=== PATIENT | female | born 1955 | race Caucasian/White ===

== ENCOUNTER → 2017-01-18 | Outpatient (REF) | payer OTHER ==
[~2017-01-18] MED LIST: ESCI10TA2 PO; ESTR625TA TOP; OMEP40CA2 PO; RANI1TAB38 PO; SIMV10TA2 PO; SING10TA32 PO; [UNRECOGNIZED DRUG - CODE] PO
[2017-01-18 14:18] LABS: CONTROL LINE HPYORI INT CTR LINE PRESENT
== END ==
LOC: M LAB REF 09:57
PROVIDERS: ATTEND Internal Medicine
DX: R10.9 Unspecified abdominal pain (principal)

== ENCOUNTER → 2017-10-03 | Outpatient (CLI) | payer OTHER ==
[2017-10-03 18:21] LABS: ALBUMIN 3.5 GM/DL (3.2-5.2); ALBUMIN/GLOBULIN RATIO 0.88 (1.00-1.93); ALKALINE PHOSPHATASE 68 U/L (45-117); ALT/SGPT 22 U/L (12-78); AST/SGOT 19 U/L (7-37); BILIRUBIN,DIRECT < 0.1 MG/DL (0.0-0.2); BILIRUBIN,TOTAL 0.3 MG/DL (0.2-1.0); CHOLESTEROL LEVEL 211 MG/DL (<200); CHOLESTEROL RISK RATIO 3.102 (<5); HDL CHOLESTEROL 68 MG/DL (>40); LDL CHOLESTEROL 95.8 MG/DL (<100); NON-HDL-C 143 MG/DL; TOTAL PROTEIN 7.5 GM/DL (6.4-8.2); TRIGLYCERIDES LEVEL 236 MG/DL (<150)
== END ==
LOC: M LAB 16:35
DX: E78.2 Mixed hyperlipidemia (principal)
CPT/HCPCS: 80076

== ENCOUNTER → 2017-11-25 | Outpatient (CLI) | payer OTHER | LOC: M WHC 08:30 | DX: Z12.31 Encounter for screening mammogram for malignant neoplasm of breast (principal); Z78.0 Asymptomatic menopausal state; Z80.3 Family history of malignant neoplasm of breast; Z95.0 Presence of cardiac pacemaker | CPT/HCPCS: 77067 ==

== ENCOUNTER 2018-03-22 09:32 | Emergency (ER) | payer OTHER ==
[2018-03-22] MEDS: TETRACAINE 0.5% OPHTH SOLN 4ML OS (10:30)
[2018-03-22] MEDS: FLUORESCEIN OPHTH 1 MG STRIP OS (10:30)
== END 2018-03-22 11:55 | disposition home or self-care (01) ==
LOC: M ED 09:32
DX: S05.92XA Unspecified injury of left eye and orbit, initial encounter (principal); W54.1XXA Struck by dog, initial encounter; Y92.89 Other specified places as the place of occurrence of the external cause; I10 Essential (primary) hypertension; J45.909 Unspecified asthma, uncomplicated; K21.9 Gastro-esophageal reflux disease without esophagitis; Z95.0 Presence of cardiac pacemaker; Z91.018 Allergy to other foods; Z91.040 Latex allergy status; E73.9 Lactose intolerance, unspecified; Z79.890 Hormone replacement therapy; Z79.899 Other long term (current) drug therapy
CPT/HCPCS: 99283

== ENCOUNTER → 2018-04-17 | Outpatient (REF) | payer OTHER ==
[2018-04-18 14:58] LABS: FERRITIN 54 NG/ML (8-252); IRON (FE) 72 UG/DL (50-170); PERCENT SATURATION 22.2 % (13.2-45.0); TOTAL IRON BINDING CAPACITY 325 UG/DL (250-450)
[2018-04-18 15:01] LABS: VITAMIN B12 LEVEL 490 PG/ML (247-911)
== END ==
LOC: M LAB REF 13:24
DX: D64.9 Anemia, unspecified (principal)
CPT/HCPCS: 83550

== ENCOUNTER → 2018-08-01 | Outpatient (REF) | payer OTHER ==
[~2018-08-01] MED LIST changes: +DICY10CA13; +LOSA50TA5 PO; +XALA0.007 OU
[2018-08-01 13:50] LABS: RHEUMATOID FACTOR QUANT < 10.0 IU/ML (<15.0)
[2018-08-01 14:02] LABS: TOTAL 25(OH) VITAMIN D 24.7 NG/ML (30.0-100.0); VITAMIN B12 LEVEL 577 PG/ML
[2018-08-02 16:40] LABS: ANTINUCLEAR ANTIBODIES DIRECT Negative (Negative)
[2018-08-04 10:48] LABS: VITAMIN E(ALPHA TOCOPHEROL) 15.6 mg/L (9.0-29.0); VITAMIN E(GAMMA TOCOPHEROL) 0.7 mg/L (0.5-4.9)
[2018-08-06 00:06] LABS: VITAMIN B1 LEVEL WHOLE BLOOD 117.7 nmol/L (66.5-200.0); VITAMIN B6,PYRIDOXAL PHOSPHATE 28.7 ug/L (2.0-32.8)
== END ==
LOC: M LAB REF 13:27
PROVIDERS: ATTEND Internal Medicine
DX: R55 Syncope and collapse (principal)

== ENCOUNTER → 2018-08-08 | Outpatient (CLI) | payer OTHER ==
[~2018-08-08] MED LIST changes: +ISOVUE-370 76% 100ML VIAL (Q9967) As Ordered ONE
--- NOTE | 2018-08-08 17:38 | REP ---
Clinical: Poor coordination. Technique: Axial pre and contrast enhanced images from the skull base to the vertex using 100 ml Isovue 370 intravenous contrast material. Findings: The ventricles, sulci, and cisterns are normal in position and appearance. Seaman-white differentiation is maintained. No acute intracranial hemorrhage, mass/mass effect, pathology or trauma/injury. No enhancing abnormalities are identified. Vascularity appears relatively symmetric to the bilateral hemispheres. No obvious aneurysm or arteriovenous malformation identified. No evidence for acute infarction. No extra-axial fluid collection. Calvarium is intact. Paranasal sinuses and mastoid air cells are clear. Impression: Normal pre and postcontrast head CT. No evidence for acute intracranial pathology or trauma/injury. Electronically Signed by Gamal Whalen MD 08/08/2018 05:29 P
== END ==
LOC: M RAD 16:36
PROVIDERS: ATTEND Psychiatry & Neurology Neurology
DX: R27.8 Other lack of coordination (principal)
CPT/HCPCS: 70470; Q9967

== ENCOUNTER → 2018-10-01 | Outpatient (REF) | payer OTHER ==
[~2018-10-01] MED LIST changes: -ISOVUE-370 76% 100ML VIAL (Q9967) As Ordered ONE
[2018-10-01 13:08] LABS: PERCENT SATURATION 30.7 % (13.2-45.0)
== END ==
LOC: M LAB REF 12:23
PROVIDERS: ATTEND Internal Medicine
DX: D64.9 Anemia, unspecified (principal)

== ENCOUNTER → 2019-04-07 | Outpatient (REF) | payer OTHER ==
[~2019-04-07] MED LIST changes: -OMEP40CA2 PO; +OMEP40CA97 PO; -SIMV10TA2 PO; +SIMV10TA21 PO
[2019-04-07 14:24] LABS: PERCENT SATURATION 14.6 % (13.2-45.0)
[2019-04-10 00:07] LABS: ANTINUCLEAR ANTIBODIES DIRECT Negative (Negative); CYCLIC CITRULLINATED PEPTIDE 8 units (0-19); Lyme Disease IgG/IgM Antibodie <0.91 ISR (0.00-0.90); Lyme Disease IgM Ab Quantitati <0.80 index (0.00-0.79)
== END ==
LOC: M LAB REF 13:37
PROVIDERS: ATTEND Internal Medicine
DX: D50.9 Iron deficiency anemia, unspecified (principal)

== ENCOUNTER → 2019-10-13 | Outpatient (REF) | payer OTHER | LOC: M SFHCWAGY 10:23 | PROVIDERS: ATTEND Nurse Practitioner Family | DX: Z12.4 Encounter for screening for malignant neoplasm of cervix (principal); Z01.419 Encounter for gynecological examination (general) (routine) without abnormal findings ==

== ENCOUNTER → 2019-10-13 | Outpatient (CLI) | payer OTHER ==
--- NOTE | 2019-10-14 01:40 | REPPI ---
Clinical: Pain Technique: AP, lateral, bilateral oblique views left hand . Findings: Generalized age-related changes are appreciated including minimal subchondral sclerosis, and joint space narrowing through the metacarpophalangeal and interphalangeal joints. Mild subchondral sclerosis and joint space narrowing is also noted at the radiocarpal joint line. No acute fracture or dislocation. No subcutaneous emphysema. No foreign body. Impression: Mild generalized osteoarthritic changes. Electronically Signed by Gamal Whalen MD 10/14/2019 01:31 A
--- NOTE | 2019-10-14 02:30 | REPPI ---
Clinical: Left hand pain. Technique: AP, lateral, bilateral oblique views of the left wrist. Findings: Generalized age-related changes include increased sclerosis along the radial surface with minimally decreased radiocarpal joint space as well as carpometacarpal joint space narrowing. No acute fracture dislocation. No obvious chondrocalcinosis or periarticular calcifications. Impression: Age-related arthritic changes. Electronically Signed by Gamal Whalen MD 10/14/2019 02:22 A
== END ==
LOC: M PLAIMG 16:01
PROVIDERS: ATTEND Psychiatry & Neurology Neurology
DX: M25.542 Pain in joints of left hand (principal); M19.041 Primary osteoarthritis, right hand; M19.031 Primary osteoarthritis, right wrist; M25.532 Pain in left wrist

== ENCOUNTER → 2019-10-13 | Outpatient (CLI) | payer OTHER ==
--- NOTE | 2019-10-13 16:58 | REPMRS ---
Patient History The patient states she had a clinical breast exam in October 2019. Family history of breast cancer at age 28 in daughter. Benign excisional biopsy of the right breast. Took hormonal contraceptives for 15 years. Taking estrogen for 10 years. Taking progesterone for 10 years. 3D TOMOSYNTHESIS WAS PERFORMED. [facility] for [facility] cancer is 10.1%. VOLPARA DENSITY B. Digital Woman Screen Mammo: October 13, 2019 - Exam #: [id number] Bilateral CC and MLO view(s) were taken. Technologist: Lola Willis, Technologist Prior study comparison: November 25, 2017, bilateral digital woman screen mammo performed at [facility]. May 19, 2015, digital woman screen mammo performed at [facility]. FINDINGS: The breast tissue is heterogeneously dense. This may lower the sensitivity of mammography. There has been no change in the appearance of the mammogram from the prior studies. There is a moderate amount of residual fibroglandular tissue which is fairly symmetric. There is no interval development of dominant mass, areas of architectural distortion, or clustered microcalcification typical of malignancy. Assessment: BI-RADS/ACR category 1 mammogram. Negative Mammogram. Recommendation Routine screening mammogram in 1 year (for women over age 40). This mammogram was interpreted with the aid of an FDA-approved computer-aided dectection system. Electronically Signed By: Mirza Seaman MD 10/13/19 [id number]
== END ==
LOC: M WHC 14:35
PROVIDERS: ATTEND Nurse Practitioner Family
DX: Z12.31 Encounter for screening mammogram for malignant neoplasm of breast (principal); Z80.3 Family history of malignant neoplasm of breast

== ENCOUNTER → 2019-10-19 | Outpatient (CLI) | payer OTHER ==
--- NOTE | 2019-10-20 08:47 | REP ---
Clinical: Pelvic pain. Technique: Transabdominal pelvic ultrasound followed by transvaginal examination for better evaluation of the endometrium and adnexa. Findings: Heterogeneous anteverted uterus measures 5.6 x 2.6 x 3.4 cm few scattered small myometrial calcifications suggest benign chronic changes. The endometrial complex measures 4 mm thickness and a small endometrial calcification is also noted and appears insignificant/chronic. No discrete significant uterine or endometrial abnormalities appreciated. Ovaries are not visualized. No pelvic fluid or adnexal mass lesion. Impression: 1. Few scattered myometrial and endometrial calcifications suggest benign chronic changes. 2. Ovaries not visualized.
== END ==
LOC: M WHC 15:29
PROVIDERS: ATTEND Nurse Practitioner Family
DX: R10.2 Pelvic and perineal pain (principal)

== ENCOUNTER → 2020-12-12 | Outpatient (CLI) | payer MEDICARE, OTHER ==
[~2020-12-12] MED LIST changes: +ESCI10TA16 PO; -ESCI10TA2 PO; +OMEP40CA4 PO; -OMEP40CA97 PO
[2020-12-12 16:07] LABS: BASO # 0.1 10^3/uL (0.0-0.2); BASO % 0.5 % (0.0-1.0); EOS # 0.1 10^3/uL (0.0-0.5); EOS % 0.6 % (0.0-3.0); HEMATOCRIT 37.7 % (36.0-47.0); HEMOGLOBIN 12.3 g/dl (12.0-15.5); LYMPH # 3.6 10^3/uL (1.5-5.0); LYMPH % 39.2 % (24.0-44.0); MEAN CORPUSCULAR HEMOGLOBIN 31.4 pg (27.0-33.0); MEAN CORPUSCULAR HGB CONC 32.6 g/dl (32.0-36.5); MEAN CORPUSCULAR VOLUME 96.2 fl (80.0-96.0); MONO # 0.8 10^3/uL (0.0-0.8); MONO % 9.1 % (2.0-8.0); NEUTROPHILS # 4.7 10^3/uL (1.5-8.5); NEUTROPHILS % 50.3 % (36.0-66.0); PLATELET COUNT, AUTOMATED 294 10^3/uL (150-450); RED BLOOD COUNT 3.92 10^6/uL (4.00-5.40); WHITE BLOOD COUNT 9.3 10^3/uL (4.0-10.0)
[2020-12-12 16:22] LABS: HEMOGLOBIN A1c 5.8 %
[2020-12-12 16:31] LABS: ERYTHROCYTE SEDIMENTATION RATE 52 mm/hr (0-30)
[2020-12-12 16:41] LABS: ALBUMIN 3.9 GM/DL (3.2-5.2); ALT/SGPT 32 U/L (12-78); BILIRUBIN,TOTAL 0.6 MG/DL (0.2-1.0); BLOOD UREA NITROGEN 22 MG/DL (7-18); CALCIUM LEVEL 9.4 MG/DL (8.8-10.2); CARBON DIOXIDE LEVEL 31 MEQ/L (21-32); CHLORIDE LEVEL 104 MEQ/L (98-107); CREATININE FOR GFR 1.08 MG/DL (0.55-1.30); GLOMERULAR FILTRATION RATE 53.9 (>45); GLUCOSE, FASTING 95 MG/DL (70-100); POTASSIUM SERUM 3.8 MEQ/L (3.5-5.1); RHEUMATOID FACTOR QUANT < 10.0 IU/ML (<15.0); SODIUM LEVEL 139 MEQ/L (136-145); VITAMIN B12 LEVEL 474 PG/ML
[2020-12-12 16:42] LABS: FOLATE 10.9 NG/ML
[2020-12-13 12:08] LABS: ALBUMIN 4.45 GM/DL (3.29-5.55); ALBUMIN % 55.6 % (55.8-66.1); ALPHA-1-GLOBULIN % 4.3 % (2.9-4.9); ALPHA-1-GLOBULINS 0.34 GM/DL (0.17-0.41); ALPHA-2-GLOBULINS 0.75 GM/DL (0.42-0.99); ALPHA-2-GLOBULINS % 9.4 % (7.1-11.8); BETA-1-GLOBULINS 0.51 GM/DL (0.28-0.60); BETA-1-GLOBULINS % 6.4 % (4.7-7.2); BETA-2-GLOBULINS % 7.8 % (3.2-6.5); GAMMA GLOBULIN % 16.5 % (11.1-18.8); GAMMA GLOBULINS 1.32 GM/DL (0.65-1.58)
[2020-12-13 12:09] LABS: BETA-2-GLOBULINS 0.62 GM/DL (0.19-0.55)
== END ==
LOC: M LAB 14:46
PROVIDERS: ATTEND Psychiatry & Neurology Neurology
DX: R41.3 Other amnesia (principal); Z79.899 Other long term (current) drug therapy

== ENCOUNTER → 2020-12-14 | Outpatient (CLI) | payer MEDICARE, OTHER ==
[~2020-12-14] MED LIST changes: +ISOVUE-370 76% 100ML VIAL As Ordered ONE
--- NOTE | 2020-12-14 14:57 | REPVR ---
PROCEDURE INFORMATION: Exam: CT Head Without And With Contrast Exam date and time: 12/14/2020 2:30 PM Age: 65 years old Clinical indication: Other: Memory loss TECHNIQUE: Imaging protocol: Computed tomography of the head without and with intravenous contrast. Radiation optimization: All CT scans at this facility use at least one of these dose optimization techniques: automated exposure control; mA and/or kV adjustment per patient size (includes targeted exams where dose is matched to clinical indication); or iterative reconstruction. Contrast material: ISOVUE 370; Contrast volume: 75 ml; Contrast route: INTRAVENOUS (IV); COMPARISON: CT Head W/O FOLL BY WITH CONTR 08/08/2018 5:05 PM FINDINGS: Brain: There is no acute intracranial hemorrhage, cerebral edema, or midline shift. Chronic microvascular ischemic changes are seen in the periventricular white matter. No enhancing lesions were identified after the administration of contrast. Mild cerebral and cerebellar volume loss is present. Cerebral ventricles: Mild ex vacuo dilation of the lateral ventricles is noted. Paranasal sinuses: Mucoperiosteal thickening is noted in the partially visualized left maxillary sinus. Mastoid air cells: The mastoid air cells are clear. Orbital cavity: The included orbital structures are unremarkable. Vasculature: Atherosclerotic calcifications are seen involving the cavernous carotid arteries. Bones/joints: Unremarkable. No acute fracture. Soft tissues: Unremarkable. IMPRESSION: 1. No acute intracranial abnormality. 2. Chronic findings as discussed above. Electronically signed by: Derik Lares On 12/14/2020 14:57:25 PM
== END ==
LOC: M RAD 14:09
PROVIDERS: ATTEND Psychiatry & Neurology Neurology
DX: R41.3 Other amnesia (principal)
CPT/HCPCS: 70470; Q9967

== ENCOUNTER → 2021-03-20 | Outpatient (CLI) | payer MEDICARE, OTHER ==
[~2021-03-20] MED LIST changes: -ISOVUE-370 76% 100ML VIAL As Ordered ONE
--- NOTE | 2021-03-20 17:55 | REPMRS ---
Patient History The patient states she has not had a clinical breast exam in over a year. Patient is postmenopausal. Family history of breast cancer at age 28 in daughter. Benign excisional biopsy of the right breast. Took hormonal contraceptives for 15 years. Took estrogen for 10 years. Took progesterone for 10 years. Moderna vaccine 06/07/20, 07/20/20 Patient states no breast complaints today. Patient has signed MRS History Sheet. Digital Woman Screen Mammo: March 20, 2021 - Exam #: [id number] Bilateral CC and MLO view(s) were taken. Technologist: RT Qasim Prior study comparison: October 13, 2019, bilateral digital woman screen mammo performed at [facility]. November 25, 2017, bilateral digital woman screen mammo performed at [facility]. FINDINGS: There are scattered fibroglandular densities. Screening. Digital screening (2D) mammography was performed bilaterally in the CC and MLO projections. Additionally, breast tomosynthesis (3D mammography) was performed bilaterally in the CC and MLO projections. Todays exam was compared to the prior exam/exams. By history, the patient has no complaints of a palpable breast abnormality or other significant breast complaints. The Volpara volumetric breast density category is B, there are scattered areas of fibroglandular densities. There is a pacemaker device in the left axilla. The breasts are unchanged in size and shape. There are no harini-soft tissue densities or spiculated masses. There is no internal architectural distortion. There are no suspicious harini-calcific clusters. Skin thickening or nipple retraction is not present. IMPRESSION: BI-RADS Category 2- Benign Findings. There is no evidence of malignant alteration of the breasts. Followup examination recommended in one year. This mammogram was read with the assistance of Weave,an FDA approved computer aided detection system for mammography. The lifetime Tyrer-Cuzick score is 9.5% Negative x-ray reports should not delay surgical consultation if a dominant or clinically suspicious mass is present. Not all breast cancers can be identified by mammography. Therefore, we recommend that you continue to perform regular breast self-examination and physical examination and then promptly contact your physician of any concerns or changes. Adenosis and dense breasts may obscure an underlying neoplasm. No significant changes when compared with prior studies. Assessment: BI-RADS/ACR category 2 mammogram. Benign Findings. Recommendation Routine screening mammogram of both breasts in 1 year. Electronically Signed By: Lior Lantigua MD 03/20/21 [id number]
== END ==
LOC: M WHC 14:35
PROVIDERS: ATTEND Internal Medicine
DX: Z12.31 Encounter for screening mammogram for malignant neoplasm of breast (principal)

== ENCOUNTER → 2021-04-08 | Outpatient (CLI) | payer MEDICARE, OTHER ==
[~2021-04-08] MED LIST changes: +LEXA1TAB2 PO
== END ==
LOC: M LABSMTC 10:56
PROVIDERS: ATTEND Anesthesiology
DX: Z01.812 Encounter for preprocedural laboratory examination (principal); Z20.822 Contact with and (suspected) exposure to COVID-19

== ENCOUNTER 2021-04-13 09:53 | Day surgery (SDC) | payer MEDICARE, OTHER ==
[~2021-04-13] VITALS: Ht 160 cm; Wt 77.6 kg
[~2021-04-13 09:53] MED LIST changes: +NS 1,000 ML IV ONE
[2021-04-13] MEDS ORDERED: LIDOCAINE 2% 100MG/5ML SDV (FOR ANES.) As Ordered ONE (10:51)
[2021-04-13] MEDS ORDERED: propofoL 200 MG/20 ML VIAL As Ordered ONE (10:51)
[2021-04-13] MEDS ORDERED: GLYCOPYRROLATE INJ 0.2 MG/ML 2 ML VIAL As Ordered ONE (10:52)
[2021-04-13 11:47] VITALS: BP 116/58
== END 2021-04-13 11:50 | disposition home or self-care (01) ==
LOC: M OPP 09:53
PROVIDERS: ATTEND Internal Medicine Gastroenterology
DX: K55.20 Angiodysplasia of colon without hemorrhage (principal); Z86.010 Personal history of colon polyps; R12 Heartburn; I10 Essential (primary) hypertension; E78.5 Hyperlipidemia, unspecified; K58.8 Other irritable bowel syndrome; Z95.0 Presence of cardiac pacemaker; F32.A Depression, unspecified; F41.9 Anxiety disorder, unspecified; Z88.8 Allergy status to other drugs, medicaments and biological substances; Z91.040 Latex allergy status; Z79.899 Other long term (current) drug therapy

== ENCOUNTER → 2021-06-16 | Outpatient (REF) | payer MEDICARE, OTHER ==
[~2021-06-16] MED LIST changes: -NS 1,000 ML IV ONE
== END ==
LOC: M LAB REF 16:22
PROVIDERS: ATTEND Internal Medicine
DX: N76.0 Acute vaginitis (principal); N39.0 Urinary tract infection, site not specified

== ENCOUNTER → 2021-06-16 | Outpatient (REF) | payer MEDICARE, OTHER | LOC: M LAB REF 16:25 | PROVIDERS: ATTEND Internal Medicine | DX: N39.0 Urinary tract infection, site not specified (principal) ==

== ENCOUNTER → 2021-08-24 | Outpatient (REF) | payer MEDICARE, OTHER | LOC: M LAB REF 16:22 | PROVIDERS: ATTEND Internal Medicine | DX: H44.112 Panuveitis, left eye (principal) ==

== ENCOUNTER → 2021-11-24 | Outpatient (CLI) | payer MEDICARE ==
[~2021-11-24] MED LIST changes: +PROG100C23 PO; -[UNRECOGNIZED DRUG - CODE] PO
== END ==
LOC: M PLAIMG 09:56
PROVIDERS: ATTEND Internal Medicine
DX: M25.551 Pain in right hip (principal)

== ENCOUNTER → 2022-02-22 | Outpatient (CLI) | payer MEDICARE | LOC: M PLAIMG 09:57 | PROVIDERS: ATTEND Physician Assistant | DX: M25.551 Pain in right hip (principal) ==

== ENCOUNTER → 2022-03-19 | Outpatient (CLI) | payer MEDICARE ==
[2022-03-19 15:50] LABS: HEMATOCRIT 38.8 % (36.0-47.0); HEMOGLOBIN 12.5 g/dl (12.0-15.5); MEAN CORPUSCULAR HEMOGLOBIN 31.3 pg (27.0-33.0); MEAN CORPUSCULAR HGB CONC 32.2 g/dl (32.0-36.5); MEAN CORPUSCULAR VOLUME 97.2 fl (80.0-96.0); PLATELET COUNT, AUTOMATED 285 10^3/uL (150-450); RED BLOOD COUNT 3.99 10^6/uL (4.00-5.40); WHITE BLOOD COUNT 10.1 10^3/uL (4.0-10.0)
[2022-03-19 16:15] LABS: CALCIUM LEVEL 9.5 MG/DL (8.8-10.2); CREATININE FOR GFR 1.08 MG/DL (0.55-1.30); GLOMERULAR FILTRATION RATE 53.7 (>45); POTASSIUM SERUM 3.6 MEQ/L (3.5-5.1)
== END ==
LOC: M PLALAB 13:34
PROVIDERS: ATTEND Physician Assistant
DX: I49.5 Sick sinus syndrome (principal)

== ENCOUNTER → 2022-04-04 | Outpatient (CLI) | payer MEDICARE ==
[~2022-04-04] MED LIST changes: +HYOS125TA
== END ==
LOC: M LABSMTC 09:04
PROVIDERS: ATTEND Anesthesiology
DX: Z01.812 Encounter for preprocedural laboratory examination (principal); Z11.52 Encounter for screening for COVID-19

== ENCOUNTER 2022-04-09 11:32 | Day surgery (SDC) | payer MEDICARE ==
[~2022-04-09] VITALS: Ht 160 cm; Wt 79.4 kg
[~2022-04-09 11:32] MED LIST changes: +ceFAZolin SOD 2 GM in IV 1 EA IV ONE
[2022-04-09] MEDS ORDERED: POLYSPORIN TOPICAL OINTMENT 15GM As Ordered ONE (13:27)
[2022-04-09] MEDS ORDERED: LIDOCAINE 1% SDV 30ML VIAL As Ordered ONE (13:27)
[2022-04-09] MEDS ORDERED: MIDAZOLAM INJ 2MG/2ML VIAL (J2250 PER 1MG) As Ordered ONE (13:55)
[2022-04-09] MEDS ORDERED: propofoL 200 MG/20 ML VIAL As Ordered ONE (13:55)
[2022-04-09] MEDS ORDERED: LIDOCAINE 2% 100MG/5ML SDV (FOR ANES.) As Ordered ONE (13:55)
[2022-04-09] MEDS ORDERED: KETOROLAC 60MG 2ML VIAL As Ordered ONE (13:55)
[2022-04-09] MEDS ORDERED: fentaNYL 100 MCG/2 ML INJECTION As Ordered ONE (13:55)
[2022-04-09] MEDS ORDERED: ONDANSETRON 4MG 2ML VIAL As Ordered ONE (13:55)
[2022-04-09] MEDS ORDERED: ACETAMINOPHEN 1000MG 100ML IV BAG As Ordered ONE (13:59)
[2022-04-09] MEDS ORDERED: LR 1,000 ML IV SCH (14:00)
[2022-04-09 15:45] VITALS: BP 141/67
== END 2022-04-09 15:48 | disposition home or self-care (01) ==
LOC: M SDC 11:32
PROVIDERS: ATTEND Internal Medicine Cardiovascular Disease
DX: Z45.010 Encounter for checking and testing of cardiac pacemaker pulse generator [battery] (principal); I49.8 Other specified cardiac arrhythmias; J45.909 Unspecified asthma, uncomplicated; G47.33 Obstructive sleep apnea (adult) (pediatric); I10 Essential (primary) hypertension; E78.00 Pure hypercholesterolemia, unspecified; K58.9 Irritable bowel syndrome, unspecified; F41.9 Anxiety disorder, unspecified; F32.A Depression, unspecified; M19.90 Unspecified osteoarthritis, unspecified site; Z91.040 Latex allergy status; Z91.011 Allergy to milk products; Z91.018 Allergy to other foods; Z79.899 Other long term (current) drug therapy
CPT/HCPCS: 33228; C1785; J0131; J0690; J1100; J1885; J2250; J2405; J3010

== ENCOUNTER 2022-04-23 15:56 | Emergency (ER) | payer MEDICARE ==
[~2022-04-23] VITALS: Ht 160 cm; Wt 82.5 kg
[~2022-04-23 15:56] MED LIST changes: -ceFAZolin SOD 2 GM in IV 1 EA IV ONE
[2022-04-23 16:48] LABS: BASO # 0.1 10^3/uL (0.0-0.2); BASO % 0.9 % (0.0-1.0); EOS # 0.1 10^3/uL (0.0-0.5); EOS % 1.2 % (0.0-3.0); HEMATOCRIT 37.7 % (36.0-47.0); HEMOGLOBIN 12.3 g/dl (12.0-15.5); LYMPH # 3.7 10^3/uL (1.5-5.0); LYMPH % 40.2 % (24.0-44.0); MEAN CORPUSCULAR HEMOGLOBIN 30.6 pg (27.0-33.0); MEAN CORPUSCULAR HGB CONC 32.6 g/dl (32.0-36.5); MEAN CORPUSCULAR VOLUME 93.8 fl (80.0-96.0); MONO # 0.6 10^3/uL (0.0-0.8); MONO % 6.8 % (2.0-8.0); NEUTROPHILS # 4.7 10^3/uL (1.5-8.5); NEUTROPHILS % 50.6 % (36.0-66.0); PLATELET COUNT, AUTOMATED 269 10^3/uL (150-450); RED BLOOD COUNT 4.02 10^6/uL (4.00-5.40); WHITE BLOOD COUNT 9.3 10^3/uL (4.0-10.0)
[2022-04-23] MEDS ORDERED: SIMV20TA22 (16:51)
[2022-04-23] MEDS ORDERED: LEXA1TAB (16:51)
[2022-04-23] MEDS ORDERED: HYDR12.55 (16:51)
[2022-04-23] MEDS ORDERED: LOSA50TA28 (16:51)
[2022-04-23 17:09] LABS: INR 0.91; PROTHROMBIN TIME 12.4 SECONDS (12.5-14.5)
[2022-04-23 17:10] LABS: PARTIAL THROMBOPLASTIN TIME 27.7 SECONDS (24.8-34.2)
[2022-04-23 17:15] LABS: CK-MB VALUE MASS < 1.0 NG/ML (<3.6); LIPASE 54 U/L (12-53)
[2022-04-23 17:17] LABS: BILIRUBIN,DIRECT 0.2 MG/DL (<0.4)
[2022-04-23 17:19] LABS: FREE T4 0.72 NG/DL (0.89-1.76)
[2022-04-23 17:20] LABS: THYROID STIMULATING HORMONE 1.294 uIU/ML (0.55-4.78)
[2022-04-23 17:22] LABS: ALBUMIN 3.9 G/DL (3.2-5.2); ALKALINE PHOSPHATASE 73 U/L (46-116); ALT/SGPT 39 U/L (7.0-40); AST/SGOT 40 U/L (<34); BILIRUBIN,TOTAL 0.9 MG/DL (0.3-1.2); BLOOD UREA NITROGEN 20 MG/DL (9-23); CALCIUM LEVEL 9.4 MG/DL (8.3-10.6); CARBON DIOXIDE LEVEL 23 MMOL/L (20-31); CHLORIDE LEVEL 102 MMOL/L (98-107); CPK CREATINE PHOSPHOKINASE 70 U/L (34-145); CREATININE FOR GFR 1.17 MG/DL (0.55-1.30); GLUCOSE, FASTING 104 MG/DL (74-106); MB/CK RELATIVE INDEX 1.42 (< OR =4); POTASSIUM SERUM 4.1 MMOL/L (3.5-5.1); SODIUM LEVEL 136 MMOL/L (136-145); TOTAL PROTEIN 7.4 G/DL (5.7-8.2)
[2022-04-23] MEDS ORDERED: MAG SULF 1GM/100ML (MAG RUN) 1 GM in IV 1 EA IV ONE (17:30)
[2022-04-23] MEDS ORDERED: SLOWTAB2 PO (19:25)
[2022-04-23 19:47] VITALS: BP 133/66
== END 2022-04-23 19:48 | disposition home or self-care (01) ==
LOC: M ED 15:56
DX: R00.2 Palpitations (principal); E83.42 Hypomagnesemia; I10 Essential (primary) hypertension; K21.9 Gastro-esophageal reflux disease without esophagitis; Z90.49 Acquired absence of other specified parts of digestive tract; J45.909 Unspecified asthma, uncomplicated; Z91.040 Latex allergy status; Z79.899 Other long term (current) drug therapy
CPT/HCPCS: 71045; 80048; 80076; 82550; 82553; 83690; 83735; 84439; 84443; 84484; 85025; 85610; 85730; 93005; 93041; 94760; 96374; 99285; J3475

== ENCOUNTER 2022-07-05 15:32 | Emergency (ER) | payer MEDICARE ==
[~2022-07-05] VITALS: Ht 160 cm; Wt 79.5 kg
[~2022-07-05 15:32] MED LIST changes: +HYDR12.55; +LEXA1TAB; +LOSA50TA28; +MONT-5 PO; +SIMV20TA22; -SING10TA32 PO; +SLOWTAB2 PO
[2022-07-05 15:33] VITALS: BP 130/66
[2022-07-05 16:17] LABS: BASO # 0.1 10^3/uL (0.0-0.2); BASO % 0.6 % (0.0-1.0); EOS % 0.4 % (0.0-3.0); HEMATOCRIT 37.6 % (36.0-47.0); HEMOGLOBIN 12.7 g/dl (12.0-15.5); LYMPH # 3.6 10^3/uL (1.5-5.0); LYMPH % 38.4 % (24.0-44.0); MEAN CORPUSCULAR HEMOGLOBIN 31.8 pg (27.0-33.0); MEAN CORPUSCULAR HGB CONC 33.8 g/dl (32.0-36.5); MEAN CORPUSCULAR VOLUME 94.2 fl (80.0-96.0); MONO # 0.8 10^3/uL (0.0-0.8); MONO % 8.4 % (2.0-8.0); NEUTROPHILS # 4.9 10^3/uL (1.5-8.5); PLATELET COUNT, AUTOMATED 254 10^3/uL (150-450); RED BLOOD COUNT 3.99 10^6/uL (4.00-5.40); WHITE BLOOD COUNT 9.4 10^3/uL (4.0-10.0)
[2022-07-05 16:39] LABS: INR 0.91; PROTHROMBIN TIME 12.5 SECONDS (12.5-14.5)
[2022-07-05 16:40] LABS: PARTIAL THROMBOPLASTIN TIME 28.5 SECONDS (24.8-34.2)
[2022-07-05 16:43] LABS: LIPASE 42 U/L (12-53)
[2022-07-05 16:51] LABS: ALBUMIN 3.9 G/DL (3.2-5.2); ALKALINE PHOSPHATASE 63 U/L (46-116); ALT/SGPT 26 U/L (7.0-40); AST/SGOT 26 U/L (<34); BILIRUBIN,DIRECT 0.3 MG/DL (<0.4); BILIRUBIN,TOTAL 1.3 MG/DL (0.3-1.2); BLOOD UREA NITROGEN 25 MG/DL (9-23); CALCIUM LEVEL 9.3 MG/DL (8.3-10.6); CARBON DIOXIDE LEVEL 30 MMOL/L (20-31); CHLORIDE LEVEL 98 MMOL/L (98-107); CK-MB VALUE MASS < 1.0 NG/ML (<3.6); CREATININE FOR GFR 1.26 MG/DL (0.55-1.30); FREE T4 0.95 NG/DL (0.89-1.76); GLUCOSE, FASTING 87 MG/DL (74-106); MAGNESIUM LEVEL 1.7 MG/DL (1.8-2.4); POTASSIUM SERUM 3.1 MMOL/L (3.5-5.1); SODIUM LEVEL 139 MMOL/L (136-145); THYROID STIMULATING HORMONE 1.735 uIU/ML (0.55-4.78); TOTAL PROTEIN 7.5 G/DL (5.7-8.2)
[2022-07-05 16:52] LABS: CPK CREATINE PHOSPHOKINASE 98 U/L (34-145); MB/CK RELATIVE INDEX 1.02 (< OR =4)
[2022-07-05] MEDS ORDERED: SLOWTAB2 PO (17:59)
[2022-07-05] MEDS ORDERED: MAG SULF 1GM/100ML (MAG RUN) 1 GM in IV 1 EA IV ONE (18:00)
[2022-07-05] MEDS ORDERED: POTASSIUM CHLORIDE 10MEQ SR TABLET PO ONE (18:00)
== END 2022-07-05 18:56 | disposition home or self-care (01) ==
LOC: M ED 15:32
DX: T82.198A Other mechanical complication of other cardiac electronic device, initial encounter (principal); E83.42 Hypomagnesemia; E87.6 Hypokalemia; Z95.0 Presence of cardiac pacemaker; K21.9 Gastro-esophageal reflux disease without esophagitis; J45.909 Unspecified asthma, uncomplicated; I10 Essential (primary) hypertension; Z91.040 Latex allergy status; Z79.899 Other long term (current) drug therapy

== ENCOUNTER → 2022-08-17 | Outpatient (CLI) | payer MEDICARE, OTHER ==
[~2022-08-17] MED LIST changes: +ISOVUE-370 76% 100ML VIAL As Ordered ONE
== END ==
LOC: M RAD 08:30
PROVIDERS: ATTEND Ophthalmology
DX: J45.909 Unspecified asthma, uncomplicated (principal)
CPT/HCPCS: 71260; Q9967

== ENCOUNTER → 2022-10-16 | Outpatient (CLI) | payer MEDICARE, OTHER ==
[~2022-10-16] MED LIST changes: -ISOVUE-370 76% 100ML VIAL As Ordered ONE
[2022-10-16 13:03] LABS: HEMATOCRIT 37.8 % (36.0-47.0); HEMOGLOBIN 12.3 g/dl (12.0-15.5); MEAN CORPUSCULAR HEMOGLOBIN 31.6 pg (27.0-33.0); MEAN CORPUSCULAR HGB CONC 32.5 g/dl (32.0-36.5); MEAN CORPUSCULAR VOLUME 97.2 fl (80.0-96.0); PLATELET COUNT, AUTOMATED 253 10^3/uL (150-450); RED BLOOD COUNT 3.89 10^6/uL (4.00-5.40); WHITE BLOOD COUNT 7.6 10^3/uL (4.0-10.0)
[2022-10-16 13:21] LABS: CREATININE FOR GFR 0.98 MG/DL (0.55-1.30); GLOMERULAR FILTRATION RATE 59.9 (>45)
== END ==
LOC: M LAB 11:47
PROVIDERS: ATTEND Physician Assistant Medical
DX: R19.4 Change in bowel habit (principal); K62.5 Hemorrhage of anus and rectum

== ENCOUNTER → 2022-10-31 | Outpatient (CLI) | payer MEDICARE, OTHER ==
[~2022-10-31] MED LIST changes: +GASTROGRAFIN SOLUTION 30ML As Ordered ONE; +ISOVUE-370 76% 100ML VIAL As Ordered ONE
== END ==
LOC: M RAD 13:14
PROVIDERS: ATTEND Ophthalmology
DX: J45.909 Unspecified asthma, uncomplicated (principal)
CPT/HCPCS: 71260; Q9963; Q9967

== ENCOUNTER → 2022-10-31 | Outpatient (CLI) | payer MEDICARE, OTHER ==
[~2022-10-31] MED LIST changes: -GASTROGRAFIN SOLUTION 30ML As Ordered ONE; -ISOVUE-370 76% 100ML VIAL As Ordered ONE
== END ==
LOC: M RAD 13:13
PROVIDERS: ATTEND Physician Assistant Medical
DX: R19.4 Change in bowel habit (principal)

== ENCOUNTER → 2023-08-22 | Outpatient (REF) | payer MEDICARE, OTHER ==
[~2023-08-22] MED LIST changes: +DICY-61; -DICY10CA13; -PROG100C23 PO; +[UNRECOGNIZED DRUG - CODE] PO
== END ==
LOC: M LAB REF 16:16
PROVIDERS: ATTEND Internal Medicine
DX: N39.0 Urinary tract infection, site not specified (principal)

== ENCOUNTER → 2023-12-02 | Outpatient (CLI) | payer MEDICARE, OTHER | LOC: M WHC 08:53 | PROVIDERS: ATTEND Internal Medicine | DX: Z12.31 Encounter for screening mammogram for malignant neoplasm of breast (principal) ==

== ENCOUNTER → 2024-01-28 | Outpatient (REF) | payer MEDICARE, OTHER ==
[2024-01-28 17:55] LABS: PERCENT SATURATION 25.8 % (13.2-45.0)
== END ==
LOC: M LAB REF 17:01
PROVIDERS: ATTEND Internal Medicine
DX: D64.9 Anemia, unspecified (principal)

== ENCOUNTER → 2024-02-25 | Outpatient (CLI) | payer MEDICARE, OTHER | LOC: M WHC 11:23 | PROVIDERS: ATTEND Internal Medicine | DX: R10.2 Pelvic and perineal pain (principal) ==

== ENCOUNTER → 2024-06-11 | Outpatient (REF) | payer MEDICARE, OTHER ==
[2024-06-11 18:48] LABS: VITAMIN B12 LEVEL 354 PG/ML (211-911)
[2024-06-11 18:50] LABS: CARCINOEMBRYONIC ANTIGEN < 2.0 NG/ML (<2.5)
== END ==
LOC: M LAB REF 16:37
PROVIDERS: ATTEND Internal Medicine
DX: D64.9 Anemia, unspecified (principal); G60.9 Hereditary and idiopathic neuropathy, unspecified; R19.4 Change in bowel habit

== ENCOUNTER → 2024-06-19 | Outpatient (CLI) | payer MEDICARE, OTHER ==
[~2024-06-19] MED LIST changes: +GASTROGRAFIN SOLUTION 30ML ONE; +ISOVUE-370 76% 100ML VIAL ONE
== END ==
LOC: M PLAIMG 08:03
PROVIDERS: ATTEND Internal Medicine
DX: R10.812 Left upper quadrant abdominal tenderness (principal); R19.4 Change in bowel habit
CPT/HCPCS: 74177; Q9963; Q9967

== ENCOUNTER → 2024-07-15 | Outpatient (CLI) | payer MEDICARE, OTHER ==
[~2024-07-15] MED LIST changes: -GASTROGRAFIN SOLUTION 30ML ONE; -ISOVUE-370 76% 100ML VIAL ONE
== END ==
LOC: M EKG 09:18
PROVIDERS: ATTEND Physician Assistant
DX: R00.2 Palpitations (principal)

== ENCOUNTER → 2024-08-21 | Outpatient (CLI) | payer MEDICARE, OTHER | LOC: M PLAIMG 11:20 | PROVIDERS: ATTEND Internal Medicine | DX: M25.551 Pain in right hip (principal) ==

== ENCOUNTER → 2025-02-22 | Outpatient (CLI) | payer MEDICARE, OTHER ==
[~2025-02-22] MED LIST changes: +ISOVUE-M 300 61% 15 ML VIAL IV ONE; +LIDOCAINE 1% MDV 20 ML VIAL As Ordered ONE; +SLOW1TAB3 PO; -SLOWTAB2 PO
[2025-02-22 13:16] VITALS: TEMP 97.9
[2025-02-22 15:40] VITALS: BP 142/64; O2SAT 97
== END ==
LOC: M IRPRO 12:53
PROVIDERS: ATTEND Physician Assistant
DX: M51.360 Other intervertebral disc degeneration, lumbar region with discogenic back pain only (principal); M47.896 Other spondylosis, lumbar region
CPT/HCPCS: 62284; 72131; Q9967